=== PATIENT | male | born 1970 | race Caucasian/White ===

== ENCOUNTER 2018-12-29 12:00 | Emergency (ER) | payer OTHER ==
--- NOTE | 2018-12-29 12:17 | PDOC ---
History of Present Illness - History of Present Illness Initial Comments: 48M hx of herniated lumbar discs, presenting after dropping a dresser on his left 1st and 2nd toe. Reports he was moving a a dresser an hour ago when it fell over and landed on his left toe. Reports some bleeding, subsequently followed by bruising. Not on any blood thinners. Not diabetic. <Chino Ruvalcaba - Last Filed: 12/29/18 13:51> <Shalonda Espinosa - Last Filed: 12/29/18 14:29> - General Chief Complaint: Injury Stated Complaint: LEFT FOOT INJURY Time Seen by Provider: 12/29/18 12:09 Past History <Chino Ruvalcaba - Last Filed: 12/29/18 13:51> <Shalonda Espinosa - Last Filed: 12/29/18 14:29> - Past Medical History Allergies/Adverse Reactions: Allergies Allergy/AdvReac Type Severity Reaction Status Date / Time No Known Allergies Allergy Verified 12/29/18 12:09 Home Medications: Ambulatory Orders Acetaminophen [Tylenol Extra Strength] 1,000 mg PO ONCE 12/29/18 Ibuprofen [Advil -] 200 mg PO ONCE 12/29/18 Lisinopril [Prinivil -] 40 mg PO DAILY 12/29/18 Review of Systems - Review of Systems Comments:: GENERAL/CONSTITUTIONAL: No fever or chills. No weakness._ HEAD, EYES, EARS, NOSE AND THROAT: No change in vision. No change in hearing. No sore throat._ CARDIOVASCULAR: No chest pain or shortness of breath_ RESPIRATORY: Denies cough, hemoptysis_ GASTROINTESTINAL: No nausea, vomiting, diarrhea or constipation._ GENITOURINARY: No dysuria, frequency, or change in urination._ MUSCULOSKELETAL: Reports left toe pain and bruising. SKIN: No rash_ NEUROLOGIC: No headache, vertigo, loss of consciousness, or change in strength/ sensation._ <Chino Ruvalcaba - Last Filed: 12/29/18 13:51> *Physical Exam - Physical Exam Comments: GENERAL: Awake, alert, and oriented to person/place/time, in no acute distress_ HEAD: No signs of trauma, normocephalic, atraumatic _ EYES: PERRLA, EOMI, sclera anicteric, conjunctiva clear_ NECK: Normal ROM, supple, no lymphadenopathy, JVD, or masses_ LUNGS: No distress, speaks in full sentences, clear to auscultation bilaterally _ HEART: Regular rate and rhythm, normal S1 and S2, no murmurs appreciated, peripheral pulses normal and equal bilaterally._ ABDOMEN: Soft, nontender, normoactive bowel sounds. No guarding, no rebound. No masses_ EXTREMITIES RUE/LUE/RLE: Normal inspection, Normal range of motion, no edema. No clubbing or cyanosis_ LLE: Inspection: No erythema. Subungual hematoma over left 1st toe. No tenderness, no obvious abnormalities, no open wounds. Compartments soft and compressible, pain within proportion, no pain to passive stretch Knee stable to anterior/posterior drawer and varus/valgus stress Sensation: SPLT DP, SP, Tib, Magen, Saph Motor: 5/5 EHL, 5/5 FHL, 5/5 TA, 5/5GS, 5/5 Quad, 5/5 Ham Vascular: 2+ DP/PT, all toes BCR <2 sec NEUROLOGICAL: Cranial nerves II through XII grossly intact. Normal speech, normal gait, no focal sensorimotor deficits _ SKIN: Warm, Dry, normal turgor, no rashes or lesions noted_ <Chino Ruvalcaba - Last Filed: 12/29/18 13:51> - Vital Signs Last Vital Signs Temp Pulse Resp BP Pulse Ox 98.9 F 84 16 153/95 100 12/29/18 12:09 12/29/18 12:09 12/29/18 12:09 12/29/18 12:45 12/29/18 12:09 <Shalonda Espinosa - Last Filed: 12/29/18 14:29> ED Treatment Course - RADIOLOGY Radiology Studies Ordered: Category Date Time Status TOE(S) LEFT [RAD] Stat Radiology 12/29/18 12:23 Completed <Shalonda Espinosa - Last Filed: 12/29/18 14:29> Medical Decision Making - Medical Decision Making 48M hx of HTN, presenting with left foot pain after a dresser fell on it a couple hours [employer]. Neurovascularly intact. -XR left foot 12/29/18 13:08 XR left foot shows degenerative changes with tuft fx and small avulsion vs calcification by the base of the distal phalanx. No acute fx. Plan to d/c home, f/u PCP and ortho. <Chino Ruvalcaba - Last Filed: 12/29/18 13:51> Discharge <Chino Ruvalcaba - Last Filed: 12/29/18 13:51> - Discharge Information Problems reviewed: Yes - Admission No <Shalonda Espinosa - Last Filed: 12/29/18 14:29> - Discharge Information Clinical Impression/Diagnosis: Toe fracture, left Condition: Improved Disposition: HOME - Follow up/Referral Referrals: Savannah Lewis [Primary Care Provider] - Jayden Puente DO [Staff Physician] - - Patient Discharge Instructions Additional Instructions: Please rest and ice your left foot. Please take motrin as needed for your pain (follow instructions on the package). Please make a follow up appointment with your primary care physician, and an orthopedist (referrals included here). If you experience any new, worsening, or concerning symptoms, including loss of sensation in your foot, weakness in your foot, or any other concerns, please return to the emergency department. - Post Discharge Activity
[2018-12-29 12:23] VITALS: PULSE 84; TEMP 98.9; BMI 24.9
--- NOTE | 2018-12-29 12:43 | PDOC ---
Attending Attestation - Resident Resident Name: Chino Ruvalcaba - ED Attending Attestation I have performed the following: I have examined & evaluated the patient, The case was reviewed & discussed with the resident, I agree w/resident's findings & plan, Exceptions are as noted - HPI HPI: 12/29/18 12:41 48-year-old male history of hypertension here today status post left great toe injury. Patient states he dropped a dresser on his toe did have some bleeding and pain did have some bleeding under the nail. Took Motrin and Tylenol prior to arrival for his pain. Happened just prior to arrival states he took a shower following the bleeding would not stop so he came to the ED. 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 Examination of the left foot demonstrates a subungual hematoma of the great toe. There is dried blood at the tip of the toenail there is no palpable bony tenderness. The second left toe has a skin avulsion at the base of the nail no subungual hematoma appreciated neurovascularly intact 2+ DP PT pulses - Medical Decision Making 12/29/18 12:42 48-year-old male status post crush injury to his left great toe he does have a subungual hematoma which was previously draining through the distal end of the nail therefore no trephination is necessary. Will obtain an x-ray to rule out a phalanx fracture already took Motrin and Tylenol for his pain therefore no further medication is necessary likely discharge home with conservative management pain control 12/29/18 13:15 Call him and x-rays of the toe show a distal tuft fracture and some degenerative changes unclear if it is acute or old there is also possibly a small avulsion fracture of the proximal tip or base of the distal phalanx. Patient given orthopedic follow-up of flat soled shoe Motrin for pain told to ice and elevate told not to run until follow-up with orthopedics discharged home
[2018-12-29 12:46] VITALS: BP 153/95
== END 2018-12-29 13:20 | disposition home or self-care (01) ==
LOC: FER 12:00
DX: S92.492A Other fracture of left great toe, initial encounter for closed fracture (principal); W20.8XXA Other cause of strike by thrown, projected or falling object, initial encounter; Y93.89 Activity, other specified; Y92.9 Unspecified place or not applicable
CPT/HCPCS: 73660-TC-LT-FY; 99282-25